=== PATIENT | female | born 1960 | race Caucasian/White ===

== ENCOUNTER 2017-12-14 07:09 | Inpatient (IN) | payer BC ==
[~2017-12-14] VITALS: Ht 162.6 cm; Wt 95.7 kg
[~2017-12-14 07:09] MED LIST: ATORVASTATIN CA40 MG PO; FLONASE 0.05%50 MCG NASAL; LEVOXYL125 MCG PO; MOBIC15 MG PO; PROAIR HFA8.5 GM INH; SINGULAIR 10 MG10 M1 PO; UNICOMPLEX M TA1 TA1 PO; ZANTAC 150MG T150 MG PO
[2017-12-14 08:38] LABS: ABSOLUTE BASOPHILS 0.1 thou/uL (0.0-0.2); ABSOLUTE EOSINOPHILS 0.1 thou/uL (0.0-0.7); ABSOLUTE LYMPHOCYTES 2.6 thou/uL (0.8-5.3); ABSOLUTE MONOCYTES 0.5 thou/uL (0.0-1.2); ABSOLUTE NEUTROPHILS 4.4 thou/uL (1.6-8.1); BASOPHILS 0.9 %; EOSINOPHILS 1.9 %; HEMATOCRIT 43.6 % (37.0-47.0); HEMOGLOBIN 14.7 gm/dL (12.0-15.0); LYMPHOCYTES 34.3 %; MCH 31.2 pg (26.0-34.0); MCHC 33.6 g/dL (28.0-37.0); MCV 92.8 fL (80.0-100.0); MONOCYTES 6.2 %; MPV 7.8 fl. (7.2-11.1); NUCLEATED RBCS 0 /100WBC; PLATELET COUNT* 264 thou/uL (150-400); POLYS 56.7 %; WBC 7.7 thou/uL (4.0-11.0)
[2017-12-14 08:45] LABS: APTT 25.4 Seconds (25.0-31.3); PROTIME 9.3 Seconds (9.20-11.50)
[2017-12-14 08:47] VITALS: BP 148/64
[2017-12-14 08:56] LABS: CALCIUM 9.1 mg/dL (8.5-10.1); CREATININE 0.9 mg/dL (0.6-1.3); POTASSIUM 3.9 mmol/L (3.5-5.1)
[2017-12-14 13:39] LABS: HEMATOCRIT 38.8 % (37.0-47.0)
[2017-12-14 13:45] LABS: POTASSIUM 4.2 mmol/L (3.5-5.1)
--- NOTE | 2017-12-14 15:17 | EKG ---
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
[2017-12-14 17:00] VITALS: BP 92/44
[2017-12-14 18:00] VITALS: BP 73/52
[2017-12-14 23:00] VITALS: BP 144/63
[2017-12-15] VITALS (8 sets, daily range): BP systolic 127–150; BP diastolic 53–65
--- NOTE | 2017-12-20 13:10 | PATH ---
[facility] [address] [place] [address] PATHOLOGY RPT PROCEDURE Name: BREE MENDOZA Room: [address] IN M.R.#: [id number] Admission: 12/14/17 Date of : 56 Discharge: 12/15/17 Report #: [id number] Path Case #: [id number] [facility] Accession Number: [id number] . 01 Material submitted: . LEFT CAROTID PLAQUE . 01 Clinical history: . Carotid plaque . 02 Diagnosis: Left carotid plaque: - Fibrointimal atherosclerotic plaque with calcification. (DONAVAN:crow; 12/17/2017) QMS/12/17/2017 . 02 Electronically signed: . Cristobal Lanier MD, Pathologist NPI- [id number] . 01 Gross description: . Received in formalin labeled "Bree Mendoza, left carotid plaque" are fragments of atherosclerotic plaque ranging in size from 0.9 cm-1.5 cm and aggregating to 1.5 x 1.2 x 0.9 cm. The fragments are serially sectioned and entirely submitted as A1. (CHANTELLE; 12/14/2017) JBR/JBR . 02 Pathologist provided ICD-10: I65.22 . 02 CPT . 040662 Performed at: [address], [place], [place] [id number] MD Timi Adam MD Phone: [phone] Performed at: [address] [address] [address] [place], [place] [id number] MD Cristobal Lanier MD Phone: [phone]
--- NOTE | 2017-12-21 17:33 | OP ---
[facility] [address] [place] [address] OPERATIVE REPORT Name: ADIA STEINER Room: [address] IN M.R.#: [id number] Admission: 12/14/17 Attend Phys: Tiffany Blair Discharge: 12/15/17 Date of : 56 Report #: [id number] THIS REPORT FOR: //name// CC: Daniel Flowers DATE OF SERVICE: 12/14/2017 PREOPERATIVE DIAGNOSIS: Asymptomatic left carotid stenosis. POSTOPERATIVE DIAGNOSIS: Asymptomatic left carotid stenosis. SURGEON: Kurtis Medina DO MEDICAL MALPRACTICE PARALEGAL: None. PROCEDURE: 1. Left carotid endarterectomy with bovine pericardial patch angioplasty. 2. Intraoperative arterial duplex. ANESTHESIA: General endotracheal anesthesia. ESTIMATED BLOOD LOSS: 100 mL. SPECIMEN: Plaque. COMPLICATIONS: None. CONDITION: Stable. DISPOSITION: ICU. INDICATIONS FOR THE PROCEDURE AND CONSENT: The patient is a 57-year-old female who presented with asymptomatic left carotid stenosis greater than 70%. Recommendation for left carotid endarterectomy was made. Risks and benefits were discussed of infection, bleeding, nerve injury, stroke, heart attack and . The patient wished to proceed, was consented and scheduled. PROCEDURE IN DETAIL: After timeout was performed, the patient was placed in supine position with sterile prep and drape of the left anterior neck and chest wall. Semi-transverse incision was made anterior to the sternocleidomastoid and dissection carried down using Bovie electrocautery. Metzenbaum scissors were used to sharply dissect out the common external and internal carotid arteries after ligating the facial vein between 2-0 silk sutures and dividing it. The external and internal carotid arteries were then controlled with vessel loops [address] [address] OPERATIVE REPORT Name: ADIA STEINER Room: [address] IN R.#: [id number] Admission: 12/14/17 Attend Phys: Tiffany Blair Discharge: 12/15/17 Date of : 56 Report #: [id number] and the common carotid artery was controlled with the Rumel tourniquet. The patient was systemically heparinized with 6000 units of heparin and allowed to circulate for 3 minutes. I then clamped the internal carotid artery first, external and common carotid arteries were then controlled respectively. The arteriotomy was made with an 11 blade scalpel and Rios scissors and a #12 shunt was placed without difficulty. I then performed the endarterectomy and meticulously cleaned the endarterectomized site with forceps, removing all debris. The end point flap did not taper well enough to leave and I tacked it in two places with a 7-0 Prolene. Once this was complete and I irrigated copiously with heparin saline, I was able to tiki the external carotid artery removing additional debris from this area as well. I then irrigated again and was pleased with the appearance of the endarterectomy site. I then obtained a 0.8 x 8 bovine pericardial patch and sutured in place with 6-0 Prolene. Prior to complete closure, I removed the shunt reapplying clamps. I irrigated the endarterectomized portion again and allowed the individual vessels to backbleed briefly and then reirrigated. I then closed the patch completely and allowed blood flow to be restored through the external carotid artery first. I then ultimately allowed blood flow to restore to the brain. I then performed an intraoperative arterial duplex, which demonstrated appropriate waveforms for the internal, external and common carotid arteries without elevated velocities. The B-mode imaging demonstrated no flaps or anatomic concerns. Wound was irrigated with antibiotic saline, noted to be hemostatic and closed in layers using 2-0 Vicryl, 3-0 Vicryl and 4-0 Monocryl suture. Dermabond dressing was applied. The patient tolerated the procedure well. All lap, needle and instrument counts were correct. The patient was administered 40 units of protamine to reverse the heparin. <ELECTRONICALLY SIGNED> By: Kurtis Medina DO 12/21/17 1733 1407 [id number] Medina DO /nt
== END 2017-12-15 12:50 | disposition home or self-care (01) | DRG 38 ==
LOC: M.PRE 07:09 → M.TBA 08:04 → M.PRE 09:20 → M.ICU 15:44
PROVIDERS: Surgery; ADMIT Internal Medicine
DX: I65.22 Occlusion and stenosis of left carotid artery (principal); J98.11 Atelectasis; E03.9 Hypothyroidism, unspecified; E78.5 Hyperlipidemia, unspecified; J45.909 Unspecified asthma, uncomplicated; K21.9 Gastro-esophageal reflux disease without esophagitis; M19.90 Unspecified osteoarthritis, unspecified site; Z79.899 Other long term (current) drug therapy; Z88.5 Allergy status to narcotic agent; Z88.2 Allergy status to sulfonamides; Z88.8 Allergy status to other drugs, medicaments and biological substances; Z88.1 Allergy status to other antibiotic agents; Z91.040 Latex allergy status

== ENCOUNTER 2019-07-08 10:07 | Emergency (ER) | payer BC ==
[~2019-07-08] VITALS: Ht 162.6 cm; Wt 90.7 kg
[2019-07-08] MEDS ORDERED: PENICILLIN V P500 MG PO (11:10)
[2019-07-08] MEDS ORDERED: NORCO 5-325 TA1 EAC1 PO (11:10)
[2019-07-08] MEDS ORDERED: IBUPROFEN 800800 M1 PO (11:10)
[2019-07-08 11:37] VITALS: BP 148/75
== END 2019-07-08 11:38 | disposition home or self-care (01) ==
LOC: M.ERS 10:07
DX: K04.7 Periapical abscess without sinus (principal); E03.9 Hypothyroidism, unspecified; E78.5 Hyperlipidemia, unspecified; J45.909 Unspecified asthma, uncomplicated; K21.9 Gastro-esophageal reflux disease without esophagitis; Z90.710 Acquired absence of both cervix and uterus; Z91.040 Latex allergy status; Z88.1 Allergy status to other antibiotic agents; Z88.6 Allergy status to analgesic agent; Z88.8 Allergy status to other drugs, medicaments and biological substances